=== PATIENT | male | born 1945 | race Caucasian/White ===

== ENCOUNTER 2017-06-05 12:48 | Outpatient (CLI) | payer OTHER, MEDICAID | END 2017-06-05 19:41 | disposition home or self-care (01) | LOC: SUS 12:48 | PROVIDERS: ATTEND Family Medicine | DX: R10.32 Left lower quadrant pain (principal) | CPT/HCPCS: 76770 ==

== ENCOUNTER 2017-07-10 09:46 | Outpatient (CLI) | payer OTHER, MEDICAID ==
[2017-07-10] MEDS ORDERED: IOHEXOL 100 ML IV ONE (10:00)
== END 2017-07-10 21:00 | disposition home or self-care (01) ==
LOC: SCT 09:46
PROVIDERS: ATTEND Family Medicine
DX: N28.1 Cyst of kidney, acquired (principal)
CPT/HCPCS: 74178; Q9967

== ENCOUNTER 2019-06-30 14:47 | Emergency (ER) | payer OTHER, MEDICAID ==
[~2019-06-30] VITALS: Ht 157.5 cm; Wt 58.1 kg
[2019-06-30 14:51] VITALS: BP_SYST 163
[2019-06-30 16:56] VITALS: BP_SYST 152
== END 2019-06-30 16:58 | disposition home or self-care (01) ==
LOC: SED 14:47
DX: B02.29 Other postherpetic nervous system involvement (principal); I10 Essential (primary) hypertension
CPT/HCPCS: 99281

== ENCOUNTER 2022-10-02 19:44 | Emergency (ER) | payer MEDICARE, OTHER ==
[~2022-10-02] VITALS: Ht 157.5 cm; Wt 56.7 kg
[2022-10-02 19:53] VITALS: BP_SYST 137
[2022-10-02] MEDS ORDERED: ACET-2634 PO (21:41)
[2022-10-02 22:18] VITALS: BP_SYST 133
== END 2022-10-02 22:10 | disposition home or self-care (01) ==
LOC: SED 19:44
DX: S01.21XA Laceration without foreign body of nose, initial encounter (principal); S80.211A Abrasion, right knee, initial encounter; Z79.899 Other long term (current) drug therapy; I10 Essential (primary) hypertension; X58.XXXA Exposure to other specified factors, initial encounter; Y93.89 Activity, other specified; Y92.89 Other specified places as the place of occurrence of the external cause; Y99.8 Other external cause status
CPT/HCPCS: 70450-TC; 73090; 73560-TC; 76376; 99284